=== PATIENT | male | born 1980 | race Hispanic/Latino ===

== ENCOUNTER 2023-10-01 07:40 | Day surgery (SDC) | payer MEDICAID ==
[2023-10-01] VITALS (10 sets, daily range): BP systolic 95–119; BP diastolic 55–73; PULSE 52–63; RESP 14–22
[~2023-10-01] VITALS: Ht 177.8 cm; Wt 145.1 kg
[2023-10-01] MEDS: 0.9%NACL 1000ML 1,000 ML IV ONE (07:59)
[2023-10-01] MEDS ORDERED: PROPOFOL 10 MG/ML 20ML VIAL IV ONE (09:01)
== END 2023-10-01 10:19 | disposition home or self-care (01) ==
LOC: SUH 07:40 → DAH 07:40 → SUH 10:19
PROVIDERS: ATTEND Internal Medicine Gastroenterology
DX: R10.13 Epigastric pain (principal); K29.50 Unspecified chronic gastritis without bleeding; K21.00 Gastro-esophageal reflux disease with esophagitis, without bleeding; K22.89 Other specified disease of esophagus; E03.9 Hypothyroidism, unspecified; E66.01 Morbid (severe) obesity due to excess calories; Z68.42 Body mass index [BMI] 45.0-49.9, adult; Z88.0 Allergy status to penicillin; Z79.890 Hormone replacement therapy; Z98.84 Bariatric surgery status; Z98.890 Other specified postprocedural states
CPT/HCPCS: 43239; J7030; J3490; A4620; A4215 ×2; A4223; A4222; A4221; A4663; A4606; J2704